=== PATIENT | male | born 1935 | race Hispanic/Latino ===

== ENCOUNTER → 2019-05-30 | Outpatient (CLI) | payer MEDICARE ==
[~2019-05-30] MED LIST: AEC81 PO; ATOR40TA71 PO; FURO40TA5 PO; ISOS30TA6 PO; LISI-617 PO; METO-391 PO; NITR0.4T SL; RIVA20TA PO; SPIR25TA6 PO
== END | disposition home or self-care (01) ==
LOC: SHCH 11:33
PROVIDERS: ATTEND Internal Medicine Cardiovascular Disease
DX: I08.3 Combined rheumatic disorders of mitral, aortic and tricuspid valves (principal)
CPT/HCPCS: 93306

== ENCOUNTER 2019-06-19 10:03 | Emergency (ER) | payer MEDICARE ==
[~2019-06-19 10:03] MED LIST changes: +CARV3.1262 PO; +CLOP75TA14 PO; +FURO20TA4 PO; -LISI-617 PO; +LISI10TA7 PO; +MAGOX PO; -METO-391 PO; -NITR0.4T SL; +PANT40TA25 PO; -RIVA20TA PO
[2019-06-19 10:40] LABS: BASOPHILS % (AUTO) 0.9 % (0.0-5.0); EOSINOPHILS % (AUTO) 3.3 % (0.0-8.0); HEMATOCRIT 45.4 % (42-54); LYMPHOCYTES % (AUTO) 29.3 % (21.0-51.0); MEAN CORPUSCULAR HEMOGLOBIN 33.3 pg (27.0-33.0); MEAN CORPUSCULAR HGB CONC 33.1 g/dL (32.0-36.0); MEAN CORPUSCULAR VOLUME 100.6 fL (79-99); MONOCYTES % (AUTO) 14.8 % (3.0-13.0); NEUTROPHILS % (AUTO) 51.7 % (40.0-77.0); NUCLEATED RED BLOOD CELLS 0.2 % (0.0-0.19); PLATELET COUNT (AUTO) 79 K/uL (130-400); RED BLOOD CELL COUNT(AUTO) 4.51 MIL/uL (4.50-6.20); RED CELL DISTRIBUTION WIDTH 17.1 % (11.0-15.5); WHITE BLOOD COUNT (AUTO) 4.1 K/uL (4.8-10.8)
[2019-06-19 10:47] LABS: CREATININE 1.1 mg/dL (0.5-1.5); POTASSIUM 3.9 mmol/L (3.5-5.1)
[2019-06-19 10:52] LABS: ALBUMIN 3.9 g/dL (3.5-5.0); BILIRUBIN,TOTAL 2.6 mg/dL (0.2-1.0); TOTAL PROTEIN, SERUM 7.9 g/dL (6.0-8.3)
[2019-06-19] MEDS ORDERED: SODIUM CHLORIDE 0.9% 250 ML IV ONE (11:05)
[2019-06-19 11:24] LABS: APPEARANCE,URINE Clear (CLEAR); BILIRUBIN,URINE Small (NEGATIVE); COLOR,URINE Dark Yellow (YELLOW); GLUCOSE, URINE (UA) Negative (NEGATIVE); KETONES,URINE Negative (NEGATIVE); LEUKOCYTE ESTERASE ,URINE Trace (NEGATIVE); NITRATE,URINE Negative (NEGATIVE); OCCULT BLOOD,URINE Negative (NEGATIVE); PH,URINE 5.5 (5.0-8.0); PROTEIN,URINE POS 2+ mg/dL (NEGATIVE)
[2019-06-19 11:33] LABS: BACTERIA,URINE Rare /HPF (None Seen); RBC,URINE 0-1 /HPF (0-1); SQUAMOUS EPITHELIAL CELL,UR Rare /HPF (0-2)
== END 2019-06-19 13:27 | disposition home or self-care (01) ==
LOC: EDH 10:03
DX: E86.0 Dehydration (principal); I11.0 Hypertensive heart disease with heart failure; I50.9 Heart failure, unspecified; E78.00 Pure hypercholesterolemia, unspecified; Z87.891 Personal history of nicotine dependence
CPT/HCPCS: 36415; 80053; 81001; 83735; 83880; 84484; 85025; 87804 ×2; 93005; 99285; J7030

== ENCOUNTER → 2019-07-20 | Outpatient (CLI) | payer MEDICARE ==
[~2019-07-20] MED LIST changes: +ATOR40TA69 PO; +CARV6.25 PO; +CLOP75TA32 PO; +FURO20TA6 PO; +FURO40TA7 PO; +MAGN400T53 PO
== END | disposition home or self-care (01) ==
LOC: RAH 09:25
PROVIDERS: ATTEND Internal Medicine Cardiovascular Disease
DX: K55.019 Acute (reversible) ischemia of small intestine, extent unspecified (principal); I50.22 Chronic systolic (congestive) heart failure; I25.5 Ischemic cardiomyopathy
CPT/HCPCS: 76775

== ENCOUNTER 2019-08-08 20:00 | Inpatient (IN) | payer MEDICARE ==
[~2019-08-08] VITALS: Ht 167.6 cm; Wt 86.9 kg
[~2019-08-08 20:00] MED LIST changes: -ATOR40TA69 PO; -CARV6.25 PO; -CLOP75TA32 PO; -FURO20TA6 PO; -FURO40TA7 PO; -MAGN400T53 PO
[2019-08-08 20:36] LABS: BASOPHILS % (AUTO) 0.6 % (0.0-5.0); EOSINOPHILS % (AUTO) 1.2 % (0.0-8.0); HEMATOCRIT 44.6 % (42-54); LYMPHOCYTES % (AUTO) 21.1 % (21.0-51.0); MEAN CORPUSCULAR HEMOGLOBIN 34.4 pg (27.0-33.0); MEAN CORPUSCULAR HGB CONC 33.6 g/dL (32.0-36.0); MEAN CORPUSCULAR VOLUME 102.3 fL (79-99); MONOCYTES % (AUTO) 18.6 % (3.0-13.0); NEUTROPHILS % (AUTO) 58.5 % (40.0-77.0); NUCLEATED RED BLOOD CELLS 0.1 % (0.0-0.19); PLATELET COUNT (AUTO) 71 K/uL (130-400); RED BLOOD CELL COUNT(AUTO) 4.36 MIL/uL (4.50-6.20); RED CELL DISTRIBUTION WIDTH 17.7 % (11.0-15.5); WHITE BLOOD COUNT (AUTO) 5.2 K/uL (4.8-10.8)
[2019-08-08 20:47] LABS: CREATININE 1.1 mg/dL (0.5-1.5); POTASSIUM 3.6 mmol/L (3.5-5.1)
[2019-08-08] MEDS ORDERED: FUROSEMIDE 10 MG/ML 2ML VIAL ONE (20:48)
[2019-08-08 20:49] LABS: INR 1.35 (0.85-1.15); PARTIAL THROMBOPLASTIN TIME 29.8 SEC (26.3-35.5)
[2019-08-08] MEDS ORDERED: SODIUM CHLORIDE 0.9% 1000ML 1,000 ML IV ONE (20:49)
[2019-08-08] MEDS ORDERED: FUROSEMIDE 10 MG/ML 4ML VIAL ONE (20:49)
[2019-08-08 20:52] LABS: ALBUMIN 3.5 g/dL (3.5-5.0); BILIRUBIN,DIRECT 1.3 mg/dL (0.0-0.3); BILIRUBIN,TOTAL 2.6 mg/dL (0.2-1.0)
[2019-08-08 21:04] LABS: B-TYPE NATRIURETIC PEPTIDE 1670 pg/mL (0-100)
[2019-08-08] MEDS ORDERED: ONDANSETRON HCL 4 MG/2 ML VIAL IVP PRN (22:00)
[2019-08-08] MEDS ORDERED: ACETAMINOPHEN 325 MG TAB PO PRN (22:00)
[2019-08-08] MEDS: IPRATROPIUM/ALBUTEROL SULFATE 3 ML SOLUTION IH SCH (23:25)
[2019-08-09] VITALS (7 sets, daily range): BP systolic 94–132; BP diastolic 55–79
[2019-08-09 00:51] LABS: APPEARANCE,URINE Clear (CLEAR); BILIRUBIN,URINE Negative (NEGATIVE); COLOR,URINE Yellow (YELLOW); GLUCOSE, URINE (UA) Negative (NEGATIVE); KETONES,URINE Negative (NEGATIVE); LEUKOCYTE ESTERASE ,URINE Negative (NEGATIVE); NITRATE,URINE Negative (NEGATIVE); OCCULT BLOOD,URINE Negative (NEGATIVE); PROTEIN,URINE Negative (NEGATIVE)
[2019-08-09] MEDS ORDERED: ATOR40TA69 PO (04:00)
[2019-08-09] MEDS ORDERED: LISI10TA7 PO (04:00)
[2019-08-09] MEDS ORDERED: FURO40TA5 PO (04:00)
[2019-08-09] MEDS ORDERED: CLOP75TA32 PO (04:00)
[2019-08-09] MEDS ORDERED: ISOS30TA6 PO (04:00)
[2019-08-09] MEDS ORDERED: MAGN400T53 PO (04:00)
[2019-08-09] MEDS ORDERED: SPIR25TA6 PO (04:00)
[2019-08-09] MEDS ORDERED: FURO20TA6 PO (04:00)
[2019-08-09] MEDS ORDERED: CARV6.25 PO (04:00)
[2019-08-09 05:12] LABS: BASOPHILS % (AUTO) 0.5 % (0.0-5.0); EOSINOPHILS % (AUTO) 1.3 % (0.0-8.0); LYMPHOCYTES % (AUTO) 20.3 % (21.0-51.0); MEAN CORPUSCULAR HEMOGLOBIN 34.2 pg (27.0-33.0); MEAN CORPUSCULAR HGB CONC 33.7 g/dL (32.0-36.0); MEAN CORPUSCULAR VOLUME 101.5 fL (79-99); NEUTROPHILS % (AUTO) 60.9 % (40.0-77.0); NUCLEATED RED BLOOD CELLS 0.1 % (0.0-0.19); PLATELET COUNT (AUTO) 75 K/uL (130-400); RED BLOOD CELL COUNT(AUTO) 4.13 MIL/uL (4.50-6.20); RED CELL DISTRIBUTION WIDTH 17.8 % (11.0-15.5)
[2019-08-09 05:22] LABS: POTASSIUM 3.2 mmol/L (3.5-5.1)
[2019-08-09] MEDS: IPRATROPIUM/ALBUTEROL SULFATE 3 ML SOLUTION IH SCH ×4 (06:41→23:41)
[2019-08-09] MEDS: CLOPIDOGREL BISULFATE 75 MG TAB PO SCH (09:00)
[2019-08-09] MEDS ORDERED: POTASSIUM CHLORIDE 10% ELIXIR 20 MEQ/15 ML UDCUP PO PRN (09:15)
[2019-08-09] MEDS ORDERED: POTASSIUM CHLORIDE 20MEQ/100ML 100 ML IV PRN ×2 (09:15)
[2019-08-09] MEDS: FAMOTIDINE 20MG TAB 20 MG TAB PO SCH (09:48)
[2019-08-09] MEDS: FUROSEMIDE 10 MG/ML 4ML VIAL IVP SCH ×2 (09:49→21:10)
[2019-08-09] MEDS: MAGNESIUM OXIDE 400 MG TABLET PO SCH (09:50)
[2019-08-09] MEDS: ISOSORBIDE MONO 30MG TAB SR PO SCH (09:51)
[2019-08-09] MEDS: SPIRONOLACTONE 25 MG TAB PO SCH (09:53)
[2019-08-09] MEDS: CARVEDILOL 3.125 MG TABLET PO SCH (09:53)
[2019-08-09] MEDS: LISINOPRIL 10 MG TABLET PO SCH (09:54)
[2019-08-09] MEDS ORDERED: FLU VACC QS2019-20 36MOS UP/PF 60 MCG/0.5 ML ML IM SCH (10:15)
--- NOTE | 2019-08-09 11:03 | NUR ---
INITIAL ASSESSMENT MET W PT FOR DISCHARGE PLANNING- STATES LIVES ALONE, HOME SAFE AND ACCESSIBLE, USES NO DME, HAS PROVIDER SERVICES, 20+ HR/WK, DAUGHTER DIANA. 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 [facility] D[facility] IS HOME Addendum: 08/10/19 at 2106 by ELIZABETH ERVIN RN CM Amended: Links added.
[2019-08-09] MEDS: POTASSIUM CHLORIDE 20 MEQ ERTAB PO PRN ×3 (14:05→21:11)
--- NOTE | 2019-08-09 16:17 | NUR ---
RD NOTIFICATION Pt admitted for Fluid overload/Respiratory distress. Pt with noted 2+BLE edema/2+ Bilateral Foot edema; recommend to add 1.5L Fluid restriction. Pt tolerating Heart healthy diet order with no report of GI distress and Fair PO intake (75%). Pt LBM 08/09/19. Pt monitored labs: K 3.2, CO2 34, BNP 1670, Alb 3.5. RD to continue to monitor. Please notify RD as additional nutrition concerns arise. Thank you. Addendum: 08/09/19 at [address] RD Amended: Links added.
[2019-08-09] MEDS ORDERED: ATORVASTATIN CALCIUM 40 MG TABLET PO SCH (21:00)
[2019-08-09] MEDS ORDERED: TEMAZEPAM 7.5 MG CAPSULE PO ONE (21:45)
[2019-08-10 04:00] VITALS: BP 106/59
[2019-08-10 05:23] LABS: BASOPHILS % (AUTO) 1.4 % (0.0-5.0); EOSINOPHILS % (AUTO) 2.1 % (0.0-8.0); HEMATOCRIT 41.3 % (42-54); MEAN CORPUSCULAR HEMOGLOBIN 35.3 pg (27.0-33.0); MEAN CORPUSCULAR HGB CONC 34.4 g/dL (32.0-36.0); MEAN CORPUSCULAR VOLUME 102.6 fL (79-99); MONOCYTES % (AUTO) 14.6 % (3.0-13.0); NEUTROPHILS % (AUTO) 61.9 % (40.0-77.0); PLATELET COUNT (AUTO) 66 K/uL (130-400); RED BLOOD CELL COUNT(AUTO) 4.03 MIL/uL (4.50-6.20); RED CELL DISTRIBUTION WIDTH 17.5 % (11.0-15.5); WHITE BLOOD COUNT (AUTO) 4.1 K/uL (4.8-10.8)
[2019-08-10 05:29] LABS: ALBUMIN 3.2 g/dL (3.5-5.0); BILIRUBIN,TOTAL 2.4 mg/dL (0.2-1.0); POTASSIUM 3.7 mmol/L (3.5-5.1); TOTAL PROTEIN, SERUM 6.9 g/dL (6.0-8.3)
[2019-08-10] MEDS: IPRATROPIUM/ALBUTEROL SULFATE 3 ML SOLUTION IH SCH ×2 (07:06→12:44)
[2019-08-10 08:00] VITALS: BP 109/76
[2019-08-10] MEDS: FAMOTIDINE 20MG TAB 20 MG TAB PO SCH (08:25)
[2019-08-10] MEDS: SPIRONOLACTONE 25 MG TAB PO SCH (08:25)
[2019-08-10] MEDS: LISINOPRIL 10 MG TABLET PO SCH (08:26)
[2019-08-10] MEDS: ISOSORBIDE MONO 30MG TAB SR PO SCH (08:26)
[2019-08-10] MEDS: MAGNESIUM OXIDE 400 MG TABLET PO SCH (08:27)
[2019-08-10] MEDS: CARVEDILOL 3.125 MG TABLET PO SCH (08:28)
[2019-08-10] MEDS: CLOPIDOGREL BISULFATE 75 MG TAB PO SCH (08:35)
--- NOTE | 2019-08-10 08:36 | NUR ---
plavix held this am due to low plt. count. verified with lyndon hagan.
[2019-08-10] MEDS ORDERED: GUAIFENESIN-DM 200/20 MG 10 ML PO SCH (08:45)
[2019-08-10] MEDS ORDERED: GUAIFENESIN-DM 200/20 MG 10 ML PO PRN (08:45)
[2019-08-10] MEDS: FUROSEMIDE 10 MG/ML 4ML VIAL IVP SCH (09:22)
[2019-08-10 12:00] VITALS: BP 98/60
--- NOTE | 2019-08-10 13:00 | NUR ---
HAS NOT YET BEEN SEEN BY CARDIOLOGY, MULTIPLE ATTEMPTS MADE CARRY OUT CONSULTAND MADE RIYA AWARE.
[2019-08-10 16:00] VITALS: BP 94/64
[2019-08-10] MEDS ORDERED: FURO40TA7 PO (16:51)
--- NOTE | 2019-08-10 18:00 | NUR ---
DISCHARGED NOW USING TEACH BACK. RX. FOR LASIX GIVEN. INST. TO CONT HOME MEDS PLUS PLAVIX GIVEN .APPTS. TO FOLLOW UP WITH DR WALL AND GIVEN. DAUGHTER VERY INVOLVED WITH CARE AND HELPFUL WITH HIS CARE
== END 2019-08-10 18:10 | disposition home or self-care (01) | DRG 293 ==
LOC: EDH 20:00 → EDHIP 21:52 → OBSVTOIN 21:52 → 3DH 08-09 00:07
PROVIDERS: ADMIT Internal Medicine; ATTEND Internal Medicine
DX: I11.0 Hypertensive heart disease with heart failure (principal); I50.23 Acute on chronic systolic (congestive) heart failure; I25.10 Atherosclerotic heart disease of native coronary artery without angina pectoris; E80.7 Disorder of bilirubin metabolism, unspecified; D69.6 Thrombocytopenia, unspecified; E78.5 Hyperlipidemia, unspecified; I25.5 Ischemic cardiomyopathy; Z87.891 Personal history of nicotine dependence; Z95.1 Presence of aortocoronary bypass graft; Z95.810 Presence of automatic (implantable) cardiac defibrillator; Z80.9 Family history of malignant neoplasm, unspecified; Z82.3 Family history of stroke
CPT/HCPCS: 36415; 71045; 71046; 80048; 80053; 80076; 81003; 82550; 83880; 84484; 85025; 85610; 85730; 93005; 94640; 94664; G0378; J1940; J7030; Q2035

== ENCOUNTER 2019-11-18 18:12 | Emergency (ER) | payer MEDICARE ==
[~2019-11-18 18:12] MED LIST changes: -AEC81 PO; +ATOR40TA69 PO; -ATOR40TA71 PO; -CARV3.1262 PO; +CARV6.25 PO; -CLOP75TA14 PO; +CLOP75TA32 PO; -FURO20TA4 PO; -FURO40TA5 PO; +FURO40TA7 PO; +MAGN400T53 PO; -MAGOX PO; -PANT40TA25 PO
[2019-11-18] MEDS ORDERED: ONDANSETRON HCL 4 MG/2 ML VIAL ONE (18:22)
[2019-11-18 18:45] LABS: BASOPHILS % (AUTO) 0.4 % (0.0-5.0); EOSINOPHILS % (AUTO) 2.6 % (0.0-8.0); HEMATOCRIT 40.5 % (42-54); LYMPHOCYTES % (AUTO) 21.5 % (21.0-51.0); MEAN CORPUSCULAR HEMOGLOBIN 33.1 pg (27.0-33.0); MEAN CORPUSCULAR HGB CONC 33.1 g/dL (32.0-36.0); MONOCYTES % (AUTO) 13.1 % (3.0-13.0); NEUTROPHILS % (AUTO) 61.8 % (40.0-77.0); PLATELET COUNT (AUTO) 99 K/uL (130-400); RED BLOOD CELL COUNT(AUTO) 4.05 MIL/uL (4.50-6.20); RED CELL DISTRIBUTION WIDTH 15.6 % (11.0-15.5); WHITE BLOOD COUNT (AUTO) 4.7 K/uL (4.8-10.8)
[2019-11-18 19:02] LABS: INR 1.29 (0.85-1.15); PARTIAL THROMBOPLASTIN TIME 28.8 SEC (26.3-35.5); PROTHROMBIN TIME 13.4 SEC (9.6-11.6)
[2019-11-18 19:08] LABS: ALBUMIN 3.6 g/dL (3.5-5.0); BILIRUBIN,TOTAL 2.2 mg/dL (0.2-1.0); TOTAL PROTEIN, SERUM 7.5 g/dL (6.0-8.3)
[2019-11-18 19:34] LABS: B-TYPE NATRIURETIC PEPTIDE 907 pg/mL (0-100)
[2019-11-18] MEDS ORDERED: PHYTONADIONE 10 MG/1 ML AMP ONE (19:50)
== END 2019-11-18 20:35 | disposition short-term general hospital (02) ==
LOC: EDH 18:12
DX: I60.9 Nontraumatic subarachnoid hemorrhage, unspecified (principal); I11.0 Hypertensive heart disease with heart failure; I50.43 Acute on chronic combined systolic (congestive) and diastolic (congestive) heart failure; I48.91 Unspecified atrial fibrillation; R11.2 Nausea with vomiting, unspecified; Z87.891 Personal history of nicotine dependence; Z95.810 Presence of automatic (implantable) cardiac defibrillator
CPT/HCPCS: 36415; 70450; 71045; 80053; 82550; 82948; 83880; 84484; 85025; 85610; 85730; 93005; 96372; 96374; 99291; J2405; J3430